=== PATIENT | female | born 2000 | race Caucasian/White ===

== ENCOUNTER → 2020-06-08 15:51 | Outpatient (CLI) | payer OTHER, SELFPAY | PROVIDERS: Visit Provider Physician Assistant | DX: N39.0 Urinary tract infection, site not specified (principal) | CPT/HCPCS: 87077; 87086; 87186 ==

== ENCOUNTER 2020-06-08 17:03 | Emergency (ER) | payer OTHER, SELFPAY ==
[2020-06-08 17:39] VITALS: BP 109/73; PULSE 113; RESP 18; TEMP 37.3; O2SAT 100; BMI 23.5
[2020-06-08 20:37] VITALS: BP 116/61; PULSE 114; RESP 17; TEMP 37; O2SAT 100
[2020-06-08] MEDS: SODIUM CHLORIDE 0.9% 1,000 ML 1000 ML IV (20:41)
[2020-06-08] MEDS: ONDANSETRON 4 MG/2 ML INJ IV (20:41)
--- NOTE | 2020-06-08 20:50 | PC.NURSE ---
iv placed labs drawn ivf infusing medicated as per o
[2020-06-08 21:01] LABS: Lactate (Lactic Acid) 0.6 mmol/L (0.7-2.1)
[2020-06-08 21:02] LABS: Alanine Aminotransferase 25 IU/L (<35); Albumin 4.8 g/dL (3.5-5.0); Albumin Globulin Ratio 1.2 (1.0-2.8); Alkaline Phosphatase 71 U/L (38-126); Aspartate Aminotransferase 29 IU/L (14-36); BUN Creatinine Ratio 8.3 (6-22); Bilirubin Total 0.5 mg/dL (0.2-1.3); Blood Urea Nitrogen 4 mg/dL (7-17); Calcium 9.9 mg/dL (8.4-10.2); Carbon Dioxide 24 mmol/L (22-32); Chloride 100 mmol/L (98-107); Estimated Glomerular Filt Rate > 60.0 mL/min (>60); Glucose 88 mg/dL (70-100); HEMOLYSIS < 15 (0-50); Potassium 3.5 mmol/L (3.4-5.1); Sodium 135 mmol/L (137-145); Total Protein 8.8 g/dL (6.3-8.2)
[2020-06-08 21:09] LABS: Add Manual Diff / Slide Review NO; Basophils Absolute Auto 0 /uL (0-100); Basophils Percent Auto 0.2 % (0-2); Eosinophils Absolute Auto 0 /uL (0-450); Eosinophils Percent Auto 0.1 % (2-4); Hematocrit 35.8 % (36-46); Hemoglobin 12.2 g/dL (12.0-16.0); Lymphocytes Absolute Auto 1600 /uL (1100-4500); Lymphocytes Percent Auto 9.6 % (25-40); Mean Corpuscular HGB Conc 34.2 % (30-36); Mean Corpuscular Hemoglobin 29.4 PG (26-34); Monocytes Absolute Auto 700 /uL (0-900); Monocytes Percent Auto 4.1 % (3-14); Neutrophils Absolute Auto 14300 /uL (1500-7000); Platelet Count 208 X10^3/uL (150-400); Red Blood Cell Count 4.16 X10^6/uL (4.0-5.2); Red Cell Distribution Width 13.5 % (11.6-14.8); White Blood Cell Count 16.6 X10^3/uL (4.5-11.0)
--- NOTE | 2020-06-08 21:19 | ED_ITS ---
HPI - General Chief complaint: Urogenital-Female Stated complaint: 20 wks preg, states she has a UTI Time Seen by Provider: 06/08/20 20:45 Source: patient Mode of arrival: Ambulatory Limitations: no limitations History of Present Illness HPI Narrative: 20-year-old female nonsmoker is had about 20 weeks and presents with a chief complaint of left flank and a recent diagnosis of UTI. She has yet to fill the antibiotic both encouraged to present to the emergency department if her symptoms did not get better. Patient presented to her PCP a few days ago and had urine demonstrating a UTI and she was given a prescription for nitrofurantoin. She denies fever nor chills. She has no nausea or vo miting. Her pain is rather persistent on the left flank and seems to get worse with motion and improves with rest. She is not dizzy nor weak or lightheaded. She denies chest pain or shortness of breath. She has had no vaginal bleeding, discharge or leakage of fluid MD Complaint: other Onset (ago): day(s) Pain Consistency: constant Location: flank Severity: mild Quality: Aching Relieving factors: rest Exacerbating factors: movement Associated symptoms: denies other symptoms Vaginal discharge: none Vaginal bleeding: none Patient : Yes OB History - Current : no complications OB History - Previous Pregnancies: no complications Related Data Home Medications Medication Instructions Recorded Confirmed [id number] 1 tab PO DAILY 06/08/20 06/08/20 [ Multi] Previous Rx's Medication Instructions Recorded nitrofurantoin 100 mg PO BID 7 Days #14 cap 06/08/20 monohydrate/macrocrystals 100 mg capsule Allergies Allergy/AdvReac Type Severity Reaction Status Date / Time No Known Drug Allergies Allergy Verified 06/08/20 15:09 Review of Systems Constitutional Constitutional: Denies chills, Denies fatigue, Denies fever(s), Denies frequent falls, Denies lethargy and Denies weakness Eyes Eyes: Denies change in vision, Denies eye discharge, Denies irritation and Denies loss of vision ENT Ears, Nose, Mouth, and Throat: Denies change in voice, Denies dizziness, Denies neck pain, Denies sore throat and Denies throat swelling Cardiovascular Cardiovascular: Denies chest pain, Denies irregular heart rhythm, Denies lightheadedness, Denies palpitations, Denies dyspnea, Denies dyspnea on exertion and Denies orthopnea Respiratory Respiratory: Denies cough, Denies dyspnea, Denies dyspnea on exertion and Denies wheezing Gastrointestinal Gastrointestinal: Denies abdominal pain, Denies change in bowel habits, Denies diarrhea, Denies nausea and Denies vomiting Musculoskeletal Musculoskeletal: Reports back pain, Denies neck pain and Denies numbness Integumentary/Breasts Skin/Breast: Denies pruritus, Denies erythema, Denies rash and Denies wounds Neurologic Neurologic: Denies behavioral changes, Denies confusion, Denies dizziness, Denies frequent falls, Denies loss of vision, Denies numbness and Denies w eakness Psychiatric Psychiatric: Denies anxiety, Denies behavioral changes, Denies confusion, Denies depression, Denies homicidal ideation and Denies suicidal ideation Endocrine Endocrine: Denies fatigue, Denies flushing and Denies palpitations Hematologic/Lymphatic Hematologic/Lymphatic: Denies easy bruising Allergic/Immunologic Allergic/Immunologic: Denies urticaria, Denies throat swelling and Denies wheezing PMFSH - Past Medical History Medical history: Reports no medical history Surgical history: Reports no surgical history 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 Well- nourished, well-developed patient, in mild distress. HEAD: Atraumatic. Normocephalic. EYES: Pupils equal round and reactive. Extraocular motions intact. No scleral icterus. No injection or drainage. ENT: Nose without bleeding, purulent drainage. Throat without erythema, tonsillar hypertrophy or exudate. Airway patent. NECK: Trachea midline. Non tender CARDIOVASCULAR: Regular rate and rhythm without murmurs, gallops, or rubs. RESPIRATORY: Clear to auscultation. Breath sounds equal bilaterally. No wheezes, rales, or rhonchi. GASTROINTESTINAL: Abdomen soft, non-tender, nondistended. EXTREMITIES: No edema or joint tenderness. BACK: Left CVA tenderness. NEURO: AOx3. SKIN: No rash or erythema of visible areas Initial Vital Signs Initial Vital Signs: Vital Signs Temperature 99.2 F 06/08/20 17:39 Pulse Rate 113 H 06/08/20 17:39 Respiratory Rate 18 06/08/20 17:39 Blood Pressure 109/73 06/08/20 17:39 Pulse Oximetry 100 06/08/20 17:39 Course Orders Ordered: ED Orders 06/08/20 20:40 Complete Blood Count AUTO DIFF Stat Comprehensive Metabolic Panel Stat Lactate (Lactic Acid) Stat 06/08/20 21:27 US renal complete Stat 06/08/20 21:30 Urine Culture Stat Discontinued Medications Sodium Chloride (Normal Saline 0.9%) 1,000 mls @ 1,000 mls/hr IV BOLUS ONE Stop: 06/08/20 21:34 Last Infusion: 06/08/20 21:37 Dose: 0 mls/hr Documented by: Admin: 06/08/20 20:41 Dose: 1,000 mls/hr Documented by: MYLES Ondansetron HCl (Zofran) 4 mg IV NOW ONE Stop: 06/08/20 20:36 Last Admin: 06/08/20 20:41 Dose: 4 mg Documented by: MYLES Vital Signs Vital signs: Vital Signs - 8 hr 06/08/20 20:37 06/08/20 22:55 Temperature 98.6 F Pulse Rate 114 H 89 Respiratory Rate 17 18 Blood Pressure 116/61 106/64 Pulse Oximetry 100 100 MDM - OB/Uterine Contractions Lab Data Result diagrams: 06/08/20 20:40 06/08/20 20:40 Labs: Lab Results 06/08/20 06/08/20 06/08/20 Range/Units 20:40 20:40 20:40 WBC 16.6 H (4.5-11.0) X10^3/uL RBC 4.16 (4.0-5.2) X10^6/uL Hgb 12.2 (12.0-16.0) g/dL Hct 35.8 L (36-46) % MCV 86.0 (80-100) fL MCH 29.4 (26-34) PG MCHC 34.2 (30-36) % RDW 13.5 (11.6-14.8) % Plt Count 208 (150-400) X10^3/uL Neut % (Auto) 86.0 H (50-75) % Lymph % (Auto) 9.6 L (25-40) % Blair % (Auto) 4.1 (3-14) % Eos % (Auto) 0.1 L (2-4) % Baso % (Auto) 0.2 (0-2) % Neut # (Auto) 53869 H (2583-6442) /uL Lymph # (Auto) 1600 (3209-7163) /uL Blair # (Auto) 700 (0-900) /uL Eos # (Auto) 0 (0-450) /uL Baso # (Auto) 0 (0-100) /uL Sodium 135 L (137-145) mmol/L Potassium 3.5 (3.4-5.1) mmol/L Chloride 100 (98-107) mmol/L Carbon Dioxide 24 (22-32) mmol/L BUN 4 L (7-17) mg/dL Creatinine 0.48 L (0.52-1.04) mg/dL Estimated GFR > 60.0 (>60) mL/min BUN/Creatinine Ratio 8.3 (6-22) Glucose 88 (70-100) mg/dL Lactate 0.6 L (0.7-2.1) mmol/L Calcium 9.9 (8.4-10.2) mg/dL Total Bilirubin 0.5 (0.2-1.3) mg/dL AST 29 (14-36) IU/L ALT 25 (<35) IU/L Alkaline Phosphatase 71 (38-126) U/L Total Protein 8.8 H (6.3-8.2) g/dL Albumin 4.8 (3.5-5.0) g/dL Globulin 4.0 (1.7-4.1) g/dL Albumin/Globulin Ratio 1.2 (1.0-2.8) Imaging Data US Renal: Radiologist's Impression: Shagufta Monteiro 20 F [address] [address] Ultrasound Report Signed Patient: Melvina MonteiroeMR#: [id number] : 2000Acct:[id number] Age/Sex: 20 / FDate of Service: 06/08/20 Loc: ED Accession Number: [id number] Procedure: US renal complete Ordering Provider: Collin Magdaleno D.O. PROCEDURE: US RENAL COMPLETE INDICATIONS: FLANK PAIN TECHNIQUE: Real-time scanning was performed of the kidneys and bladder, with image documentation. COMPARISON: None. FINDINGS: Kidneys: Kidneys are normal in size. Right kidney measures 13.2 cm long; left kidney measures 13.1 cm long. Right renal cortical thickness is 1.8 cm; left renal cortical thickness is 1.6 cm. Renal cortical echotexture is normal. No hydronephrosis or nephrolithiasis. No suspicious solid mass lesions. Bladder: The urinary bladder is nondistended. Miscellaneous: No free pelvic fluid. Gravid uterus is noted with single live intrauterine . heart rate is 157 beats per minute. IMPRESSION: Normal renal ultrasound. Gravid uterus. Dictated by: Attila Oliver M.D. on 06/08/2020 at 22:43 Approved by: Attila Oliver M.D. on 06/08/2020 at 22:44 MDM Narrative Medical decision making narrative: Today's UA is not terribly convincing for UTI making pyelo very unlikely. Other considerations include musculoskeletal. Also, hydronephrosis from stone or hydro of , however no findings on US to support this. She has no systemic complaints. Unclear etiology at this point, but very reassuring findings tonight. Return precautions given and questions answered to her apparent satisfaction Discharge Plan Departure Patient Disposition: Home Clinical Impression: Acute flank pain Discharge Date/Time: 06/08/20 22:57 Instructions: DI for Flank Pain Activity Restrictions/Additional Instructions: *You have been diagnosed *What to do: *Take medications as directed *Follow up with your primary care provider in 2-3 days, call for an appointment. Let them know you were seen in the Emergency Department and that we ask that you be seen in follow up *Return to ER if you should have any new, worsening or concerning symptoms Prescriptions: No Action nitrofurantoin monohyd/m-cryst [Macrobid] 100 mg capsule 100 mg PO BID 7 Days Qty: 14 RF: 0 Multi 27-800 mg-mcg Tablet 1 tab PO DAILY RF: 0
--- NOTE | 2020-06-08 21:27 | DI.US.S_ITS ---
PROCEDURE: US RENAL COMPLETE INDICATIONS: FLANK PAIN TECHNIQUE: Real-time scanning was performed of the kidneys and bladder, with image documentation. COMPARISON: None. FINDINGS: Kidneys: Kidneys are normal in size. Right kidney measures 13.2 cm long; left kidney measures 13.1 cm long. Right renal cortical thickness is 1.8 cm; left renal cortical thickness is 1.6 cm. Renal cortical echotexture is normal. No hydronephrosis or nephrolithiasis. No suspicious solid mass lesions. Bladder: The urinary bladder is nondistended. Miscellaneous: No free pelvic fluid. Gravid uterus is noted with single live intrauterine . heart rate is 157 beats per minute. IMPRESSION: Normal renal ultrasound. Gravid uterus. Dictated by: Attila Oliver M.D. on 06/08/2020 at 22:43 Approved by: Attila Oliver M.D. on 06/08/2020 at 22:44
--- NOTE | 2020-06-08 21:37 | PC.NURSE ---
ambualtory to bathroom to give urine sample
[2020-06-08 22:55] VITALS: BP 106/64; PULSE 89; RESP 18; O2SAT 100
== END 2020-06-08 22:57 | disposition home or self-care (01) ==
PROVIDERS: Emergency Provider Emergency Medicine
DX: O26.892 Other specified pregnancy related conditions, second trimester (principal); R10.9 Unspecified abdominal pain; Z3A.20 20 weeks gestation of pregnancy; N39.0 Urinary tract infection, site not specified
CPT/HCPCS: 36415; 76770; 80053; 83605; 85025; 87077; 87086; 87186; 96361; 96374; 99284; J2405

== ENCOUNTER → 2024-05-14 07:45 | Outpatient (CLI) | payer OTHER, MEDICAID, SELFPAY ==
--- NOTE | 2024-05-14 | DI.US.S_ITS ---
PROCEDURE: US OB >= 14 WEEKS FETUS INDICATIONS: anatomy scan OUTSIDE/PRIOR DATING DATA: Last menstrual period (LMP): December 18, 2023. LMP-based estimated date of delivery (MEGHANA): September 23, 2024. TECHNIQUE: Real-time scanning was performed of the fetus, with image documentation and biometric measurements. Endovaginal scanning: Not performed COMPARISON: None. FINDINGS: General: A single living intrauterine gestation is present. Presentation: Breech. Placenta: Placental position is anterior , without previa. Amniotic fluid index: 13.1 cm, normal range is 5-24 cm. Single deepest vertical pocket is 3.5 cm. heart rate: 165 beats per minute. Maternal cervical canal: 2.9 cm long. Normal lower limit is 2.5 cm. biometrics: Biparietal diameter: 5.3 cm, 22 weeks and 1 day Head circumference: 20.2 cm, 22 weeks and 2 days Abdominal circumference: 18.6 cm, 23 weeks and 3 days Femur length: 3.6 cm, 21 weeks and 4 days Clinically estimated gestational age: 21 weeks and 1 day Composite gestational age from present scan: 22 weeks and 4 days Estimated weight and percentile: 512 g, 98th percentile for gestational age Anatomic survey: Neuro: Ventricles are non-dilated at less than 10 mm. Cisterna magna is normal at 3-11 mm. Cerebellum is normal in size and morphology. Nuchal skin fold: Normal at less than 6 mm between 14-21 weeks gestational age. Face: Nose and lips, facial profile are not well visualized secondary to positioning. Spine: No evidence for spina bifida. Heart: 4-chambered heart is present, with ventricular outflow tracts. Overall, cardiac structures are not well visualized secondary to positioning throughout the study. Diaphragm: Diaphragm is intact. Stomach: Left-sided stomach is present. Kidneys: There is prominent appearance of the bilateral kidneys with AP renal pelvis diameter of approximately 5 mm. Questionable pararenal fluid. Normal is less than 5 mm in 2nd trimester, less than 7 mm in 3rd trimester. Cord: 3-vessel cord has orthotopic insertion. Bladder: Normal in size. Extremities: All 4 extremities identified. IMPRESSION: Single living intrauterine gestation with estimated sonographic gestational age of approximately 22 weeks and 4 days versus approximately 21 weeks and 1 day by clinical dating. Estimated weight of approximately 512 g which correlates with the 98th percentile. The nose and lips, facial profile were not well visualized secondary to positioning. The cardiac structures were also not well visualized secondary to positioning. Follow-up imaging recommended. Borderline enlargement of the AP renal pelvic diameter measuring 5 mm. Recommend follow-up ultrasound at 32 weeks. Otherwise, unremarkable anatomy screening survey. We strive to produce accurate, complete, and clear reports of imaging services. To assist us in improving patient care, this report was composed using standard report templates and voice recognition software. Therefore, it may contain abnormal punctuation, insertions and/or omissions. Occasional wrong-word or sound-alike substitutions may occur. Though we review the report and make efforts to correct it, we do recommend that the report be read carefully in proper context to recognize any text inaccuracies. Dictated by: Regan Guillen M.D. on 05/14/2024 at 12:19 Approved by: Regan Guillen M.D. on 05/14/2024 at 12:26
== END ==
PROVIDERS: Referring Provider Nurse Practitioner Obstetrics & Gynecology; Visit Provider Nurse Practitioner Obstetrics & Gynecology
DX: Z34.92 Encounter for supervision of normal pregnancy, unspecified, second trimester (principal); Z3A.22 22 weeks gestation of pregnancy
CPT/HCPCS: 76811